=== PATIENT | male | born 1940 ===

== ENCOUNTER 2017-11-27 06:45 | Emergency (ER) | payer MEDICARE ==
[2017-11-27] MEDS ORDERED: Lidocaine 5% Patch TD STA (07:28)
[2017-11-27] MEDS ORDERED: Lidocaine 5% Patch TD ONE (08:02)
[2017-11-27] MEDS ORDERED: Tramadol 25 mg ONE (08:03)
--- NOTE | 2017-11-27 09:08 | C.PDOC ---
History Of Present Illness 77-year-old male, presents to the emergency department with complaints of pain to his right buttock radiating down his leg ongoing for one week. Patient was seen by PMD Dr. Acevedo, who gave patient Naprosyn and did XR. Pain is worse with movement an pressure to mid-buttock. He notes associated parasthesia to the thigh. Denies fever or chills. No other complaints at this time. Time Seen by Provider: 11/27/17 07:03 Chief Complaint (Nursing): Back Pain History Per: Patient History/Exam Limitations: no limitations Current Symptoms Are (Timing): Still Present Past Medical History Reviewed: Historical Data, Nursing Documentation, Vital Signs Vital Signs: Last Vital Signs Temp 99.0 F 11/27/17 08:56 Pulse 74 11/27/17 08:56 Resp 17 11/27/17 08:56 BP 162/84 H 11/27/17 08:56 Pulse Ox 98 11/27/17 09:19 - Medical History PMH: HTN Surgical History: Appendectomy Family History: States: No Known Family Hx - Social History Hx Tobacco Use: No Hx Alcohol Use: No Hx Substance Use: No - Immunization History Hx Tetanus Toxoid Vaccination: No Hx Influenza Vaccination: No Hx Pneumococcal Vaccination: No Review Of Systems Constitutional: Negative for: Fever Musculoskeletal: Positive for: Back Pain, Leg Pain Skin: Negative for: Rash Neurological: Negative for: Weakness, Numbness Physical Exam - Physical Exam Appears: Non-toxic, No Acute Distress Skin: Normal Color, Warm, Dry, No Rash Head: Atraumatic, Normacephalic Eye(s): bilateral: Normal Inspection Nose: Normal Oral Mucosa: Moist Lips: Normal Appearing Neck: Normal ROM Chest: Symmetrical Cardiovascular: Rhythm Regular, No Murmur Respiratory: Normal Breath Sounds, No Accessory Muscle Use Gastrointestinal/Abdominal: Soft, No Tenderness Back: No Paraspinal Tenderness Extremity: Tenderness, No Deformity, No Swelling, Other (Able to bear weight, but limping on right) Neurological/Psych: Oriented x3, Normal Speech ED Course And Treatment O2 Sat by Pulse Oximetry: 98 (RA) Pulse Ox Interpretation: Normal Medical Decision Making Medical Decision Making: Plan: * Ibuprofen, Lidoderm, Motrin * Reassess and Disposition Disposition Counseled Patient/Family Regarding: Diagnosis, Need For Followup, Rx Given - Disposition Referrals: Sanket Acevedo MD [Staff Provider] - Disposition: HOME/ ROUTINE Disposition Time: 10:46 Condition: STABLE Prescriptions: traMADol/Acetaminophen [Ultracet 37.5/325 mg] 1 tab PO TID PRN #12 tab PRN Reason: pain Instructions: Sciatica Forms: Gen Discharge Inst Brazilian, [facility] (Brazilian) - POA Present On Arrival: None - Clinical Impression Clinical Impression: Sciatica - Scribe Statement The provider has reviewed the documentation as recorded by the Scribe (Mindy Berry) All medical record entries made by the Scribe were at my direction and personally dictated by me. I have reviewed the chart and agree that the record accurately reflects my personal performance of the history, physical exam, medical decision making, and the department course for this patient. I have also personally directed, reviewed, and agree with the discharge instructions and disposition.
[2017-11-27 11:10] VITALS: BP 145/79; PULSE 69; RESP 16; TEMP 97.7; O2SAT 97
== END 2017-11-27 11:17 | disposition home or self-care (01) ==
LOC: C.ER 06:45
DX: M54.31 Sciatica, right side (principal)